=== PATIENT | male | born 1965 | race Caucasian/White ===

== ENCOUNTER 2022-05-16 08:57 | Emergency (ER) | payer OTHER ==
[2022-05-16 09:13] VITALS: O2SAT 97
--- NOTE | 2022-05-16 09:32 | ERPHSYRPT ---
- History of Present Illness Time Seen by Provider: 05/16/22 09:32 Source: patient, family Exam Limitations: no limitations Patient Subjective Stated Complaint: Pt had thyroid removed 4 weeks ago due to a massive cancerous tumor and pt woke this morning with neck pain that goes down his right arm and has numbness in his neck and in his fingers Triage Nursing Assessment: Pt brought to the ER by his , hypertensive, rates neck and arm pain as 7/10, thinks his calcium might be low, pulses normal, skin n/w/d, normal gait, no difficulty with breathing Physician History: This is a morbidly obese 57-year-old white male patient of Dr. John Peraza who presents to the emergency department with right neck paraspinous muscle achiness as well as right posterior shoulder and shoulder achiness. Symptoms started mildly yesterday. This morning the symptoms were worse. He has no chest pain he has no shortness of breath. Proximally 1 month ago patient underwent a total thyroidectomy secondary to thyroid cancer. Patient has been placed on thyroid supplementation as well as calcium supplementation. Patient has radiation therapy scheduled for approximately 1 month from now. Patient has a history of gastroesophageal reflux disease, elevated cholesterol and hypertension. Timing/Duration: abrupt onset, this morning Prearrival Treatment: no prearrival treatment Modifying Factors: Improves With: activity Associated Symptoms: neck pain Allergies/Adverse Reactions: No Known Drug Allergies Allergy (Verified 05/16/22 09:13) Home Medications: Albuterol Sulfate [Albuterol Sulfate Hfa] 2 inh PO UD PRN 05/16/22 [History] Amlodipine Besylate 10 mg PO DAILY 05/16/22 [History] Calcium Carbonate/Vitamin D3 [Calcium 600 with Vit D Chew Tb] 2 each PO DAILY 05/16/22 [History] Carvedilol [Coreg ] 6.25 mg PO DAILY 05/16/22 [History] Cetirizine HCl 10 mg PO DAILY 05/16/22 [History] Famotidine 20 mg [Pepcid 20 MG] 20 mg PO DAILY 05/16/22 [History] Fenofibrate 160 mg PO DAILY 05/16/22 [History] Fluticasone/Umeclidin/Vilanter [Trelegy Ellipta 200-62.5-25] 1 inh PO DAILY 05/16/22 [History] Furosemide 20 mg [Lasix 20 mg] 20 mg PO DAILY 05/16/22 [History] Levothyroxine Sodium [Levo-T] 250 mcg PO DAILY 05/16/22 [History] Losartan Potassium 100 mg PO DAILY 05/16/22 [History] Montelukast Sodium 10 mg [Singulair 10 MG] 10 mg PO DAILY 05/16/22 [History] Multivitamin 1 each PO DAILY 05/16/22 [History] Pravastatin Sodium 40 mg PO DAILY 05/16/22 [History] hydroCHLOROthiazide [Hydrochlorothiazide] 12.5 mg PO DAILY 05/16/22 [History] Hx Tetanus, Diphtheria Vaccination/Date Given: Yes Hx Influenza Vaccination/Date Given: No Hx Pneumococcal Vaccination/Date Given: No Travel Risk - International Travel Have you traveled outside of the country in past 3 weeks: No - Coronavirus Screening Are you exhibiting any of the following symptoms?: No Close contact with a COVID-19 positive Pt in past 14-21 Days: No - Vaccine Status Have you recieved a Covid-19 vaccination: Yes 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 - Review of Systems Constitutional: No Symptoms Eyes: No Symptoms Ears, Nose, & Throat: Other (right post neck pain) Respiratory: No Symptoms Cardiac: No Symptoms Abdominal/Gastrointestinal: No Symptoms Genitourinary Symptoms: No Symptoms Musculoskeletal: Neck Pain (right post neck pain), Other (assoc right shoulder and upper arm ache) Skin: No Symptoms Neurological: No Symptoms Psychological: No Symptoms Endocrine: No Symptoms Hematologic/Lymphatic: No Symptoms Immunological/Allergic: No Symptoms All Other Systems: Reviewed and Negative - Past Medical History Pertinent Past Medical History: Yes Cardiac History: High Cholesterol, Hypertension Endocrine Medical History: Thyroid Cancer GI Medical History: GERD - Past Surgical History Past Surgical History: Yes Other Surgical History: carpal tunnel, thyroid removed - Social History Smoking Status: Never smoker Exposure to second hand smoke: No Drug Use: none Patient Lives Alone: No - Nursing Vital Signs Nursing Vital Signs: Initial Vital Signs Temperature 98.4 F 05/16/22 09:05 Pulse Rate 84 05/16/22 09:05 Blood Pressure 177/98 05/16/22 09:05 O2 Sat by Pulse Oximetry 97 05/16/22 09:05 Pain Scale Pain Intensity 6 - Physical Exam General Appearance: no apparent distress, alert, anxiety, obese Eye Exam: bilateral eye: normal inspection, PERRL, EOMI Ear Exam: bilateral ear: auricle normal Nasal Exam: normal inspection Throat Exam: normal, pharynx normal, moist mucus membranes Neck Exam: supple, full range of motion (Associated right paraspinous muscle and right trapezius muscle achiness), trachea midline Cardiovascular/Respiratory Exam: chest non-tender, no respiratory distress Abdominal Exam: non-tender Neurologic Exam: alert, oriented x 3, cooperative, 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, normal mood/affect, nml cerebellar function, nml station & gait, sensation nml Skin Exam: normal color, warm, dry SpO2 Interpretation: normal SpO2: 97 O2 Delivery: Room Air - Course Nursing assessment & vital signs reviewed: Yes EKG Interpreted by Me: RATE (82), Sinus Rhythm, NORMAL AXIS, NORMAL INTERVALS, NORMAL QRS, NORMAL ST-T, Other (no acute ischemia) Ordered Tests: Active Orders 24 hr Category Date Time Status IV Insertion STAT Care 05/16/22 09:32 Active IV Insertion STAT Care 05/16/22 09:42 Completed NECK WO CONTRAST [CT] Stat Exams 05/16/22 09:37 Completed CBC W DIFF Stat Lab 05/16/22 09:50 Completed CMP Stat Lab 05/16/22 09:50 Completed T4 (Thyroxine) Stat Lab 05/16/22 09:50 Completed TROPONIN Q3H Lab 05/16/22 09:34 Completed TROPONIN Q3H Lab 05/16/22 13:30 Ordered TROPONIN Q3H Lab 05/16/22 16:30 Ordered TROPONIN Q3H Lab 05/16/22 19:30 Ordered TROPONIN Q3H Lab 05/16/22 22:30 Ordered TSH [TSH, 3RD Generation] Stat Lab 05/16/22 09:50 Completed Lab/Rad Data: Laboratory Result Diagrams 05/16/22 09:50 05/16/22 09:50 Laboratory Results 05/16/22 05/16/22 05/16/22 Range/Units 09:50 09:50 09:50 WBC (4.0-10.5) x10^3/uL RBC (4.1-5.6) x10^6/uL Hgb (12.5-18.0) g/dL Hct (42-50) % MCV (78-100) fL MCH (26-32) pg MCHC (32-36) g/dL RDW (11.5-14.0) % Plt Count (150-450) x10^3/uL MPV (7.5-11.0) fL Gran % (36.0-66.0) % Immature Gran % (Auto) (0.00-0.4) % Nucleat RBC Rel Count (0.00-0.1) % Eos # (Auto) (0-0.5) x10^3/uL Immature Gran # (Auto) (0.00-0.03) x10^3u/L Absolute Lymphs (auto) (1.0-4.6) x10^3/uL Absolute Monos (auto) (0.0-1.3) x10^3/uL Absolute Nucleated RBC (0.00-0.01) x10^3u/L Lymphocytes % (24.0-44.0) % Monocytes % (0.0-12.0) % Eosinophils % (0.00-5.0) % Basophils % (0.0-0.4) % Absolute Granulocytes (1.4-6.9) x10^3/uL Basophils # (0-0.4) x10^3/uL Sodium 140 (137-145) mmol/L Potassium 3.8 (3.5-5.1) mmol/L Chloride 102 (98-107) mmol/L Carbon Dioxide 28 (22-30) mmol/L Anion Gap 12.9 (5-15) MEQ/L BUN 16 (9-20) mg/dL Creatinine 1.09 (0.66-1.25) mg/dL Estimated GFR > 60.0 ML/MIN Glucose 131 H (74-106) mg/dL Calcium 9.5 (8.4-10.2) mg/dL Total Bilirubin 0.50 (0.2-1.3) mg/dL AST 30 (17-59) U/L ALT 31 (0-50) U/L Alkaline Phosphatase 81 (38-126) U/L Troponin I (0.000-0.034) ng/mL Serum Total Protein 8.3 H (6.3-8.2) g/dL Albumin 4.6 (3.5-5.0) g/dL Thyroxine (T4) 12.3 H (5.53-10.96) ug/dL TSH 3rd Generation 3.890 (0.47-4.68) mIU/L 05/16/22 05/16/22 Range/Units 09:50 09:34 WBC 6.1 (4.0-10.5) x10^3/uL RBC 4.24 (4.1-5.6) x10^6/uL Hgb 12.0 L (12.5-18.0) g/dL Hct 37.5 L (42-50) % MCV 88.4 (78-100) fL MCH 28.3 (26-32) pg MCHC 32.0 (32-36) g/dL RDW 13.3 (11.5-14.0) % Plt Count 248 (150-450) x10^3/uL MPV 10.8 (7.5-11.0) fL Gran % 72.1 H (36.0-66.0) % Immature Gran % (Auto) 0.8 H (0.00-0.4) % Nucleat RBC Rel Count 0.0 (0.00-0.1) % Eos # (Auto) 0.11 (0-0.5) x10^3/uL Immature Gran # (Auto) 0.05 H (0.00-0.03) x10^3u/L Absolute Lymphs (auto) 0.93 L (1.0-4.6) x10^3/uL Absolute Monos (auto) 0.57 (0.0-1.3) x10^3/uL Absolute Nucleated RBC 0.00 (0.00-0.01) x10^3u/L Lymphocytes % 15.2 L (24.0-44.0) % Monocytes % 9.3 (0.0-12.0) % Eosinophils % 1.8 (0.00-5.0) % Basophils % 0.8 (0.0-0.4) % Absolute Granulocytes 4.41 (1.4-6.9) x10^3/uL Basophils # 0.05 (0-0.4) x10^3/uL Sodium (137-145) mmol/L Potassium (3.5-5.1) mmol/L Chloride (98-107) mmol/L Carbon Dioxide (22-30) mmol/L Anion Gap (5-15) MEQ/L BUN (9-20) mg/dL Creatinine (0.66-1.25) mg/dL Estimated GFR ML/MIN Glucose (74-106) mg/dL Calcium (8.4-10.2) mg/dL Total Bilirubin (0.2-1.3) mg/dL AST (17-59) U/L ALT (0-50) U/L Alkaline Phosphatase (38-126) U/L Troponin I < 0.012 (0.000-0.034) ng/mL Serum Total Protein (6.3-8.2) g/dL Albumin (3.5-5.0) g/dL Thyroxine (T4) (5.53-10.96) ug/dL TSH 3rd Generation (0.47-4.68) mIU/L - Progress Progress: improved, pain not gone completely Progress Note: 05/16/22 11:27 ct neck/soft tissues: postsurgical site without complications. incidental findings of mild degenerative changes C5-C7 Counseled pt/family regarding: lab results, diagnosis, need for follow-up, rad results - Departure Departure Disposition: Home Clinical Impression: Musculoskeletal pain Condition: Stable Critical Care Time: No Referrals: NURA DILLON MD [Primary Care Provider] - Follow up/PCP as directed Additional Instructions: continue your medications as prescribed. follow up with your prescribing p jana today for further evaluation and management Prescriptions: Orphenadrine Citrate 100 mg [Norflex 100 MG Tablet] 100 mg PO BID #10 tab
[2022-05-16 10:13] LABS: Absolute Neutrophil Ct (ANC) 4.41 x10^3/uL (1.4-6.9); Basophil (Absolute #) 0.05 x10^3/uL (0-0.4); Eosinophil % 1.8 % (0.00-5.0); Eosinophil (Absolute #) 0.11 x10^3/uL (0-0.5); Hematocrit 37.5 % (42-50); Lymphocyte (Absolute #) 0.93 x10^3/uL (1.0-4.6); Lymphocytes % 15.2 % (24.0-44.0); Mean Cell Volume 88.4 fL (78-100); Mean Corpuscular Hemoglobin 28.3 pg (26-32); Mean Platelet Volume 10.8 fL (7.5-11.0); Monocyte (Absolute #) 0.57 x10^3/uL (0.0-1.3); Monocytes % 9.3 % (0.0-12.0); Neutrophil % 72.1 % (36.0-66.0); Platelet Count 248 x10^3/uL (150-450); Red Blood Count 4.24 x10^6/uL (4.1-5.6); Red Cell Distribution Width 13.3 % (11.5-14.0); White Blood Count 6.1 x10^3/uL (4.0-10.5)
[2022-05-16 10:19] LABS: ALBUMIN 4.6 g/dL (3.5-5.0); ALKALINE PHOSPHATASE 81 U/L (38-126); ANION GAP 12.9 MEQ/L (5-15); BLOOD UREA NITROGEN 16 mg/dL (9-20); CHLORIDE 102 mmol/L (98-107); Calcium 9.5 mg/dL (8.4-10.2); Carbon Dioxide 28 mmol/L (22-30); Creatinine 1 1.09 mg/dL (0.66-1.25); EST GLOMERULAR FILTRATION RATE > 60.0 ML/MIN; Glucose 131 mg/dL (74-106); Potassium 3.8 mmol/L (3.5-5.1); SGOT/AST 30 U/L (17-59); SGPT/ALT 31 U/L (0-50); SODIUM 140 mmol/L (137-145); Total Protein 8.3 g/dL (6.3-8.2)
--- NOTE | 2022-05-16 11:20 | XRAY ---
Indication: Right neck/shoulder pain. Body aches. Status post total thyroidectomy. Multiple contiguous axial images obtained through the neck without contrast. Sagittal and coronal reformatted images obtained. Comparison: None Parotid glands demonstrate diffuse fatty replacement bilaterally. Submandibular glands are bilaterally symmetric. Total thyroidectomy with postoperative changes. No focal solid/cystic soft tissue mass or abnormal fluid collection on this noncontrast exam. A few subcentimeter cervical lymph nodes bilaterally. No pathologic cervical/supraclavicular lymphadenopathy. Major arteries and veins are normal in course and caliber. Supra and infraglottic airway widely patent. Normal epiglottis. Osseous structures intact with incidental mild C5-C7 degenerative changes. No acute fracture or suspicious bony lesions. Incidental bilateral exophthalmos. Base of brain and lung apices are unremarkable. Impression: 1. Status post total thyroidectomy without complications or pathologic lymphadenopathy. 2. Incidental diffuse fatty replaced parotid glands, bilateral exophthalmos, and mild C5-C7 degenerative changes.
[2022-05-16] MEDS ORDERED: Norflex 60 MG/2 ML IV ONE (11:31)
[2022-05-16] MEDS ORDERED: Norflex 60 MG/2 ML ONE (11:33)
[2022-05-16 11:48] VITALS: BP 150/86; PULSE 81
== END 2022-05-16 11:49 | disposition home or self-care (01) ==
LOC: ED 08:57
DX: M54.2 Cervicalgia (principal); M25.511 Pain in right shoulder; E78.5 Hyperlipidemia, unspecified; I10 Essential (primary) hypertension; E89.0 Postprocedural hypothyroidism; Z79.899 Other long term (current) drug therapy
CPT/HCPCS: 36000; 36415; 70490; 80053; 83970; 84436; 84443; 84484; 85025; 93005; 96374; 99284; J2360

== ENCOUNTER 2022-05-21 03:49 | Emergency (ER) | payer OTHER ==
--- NOTE | 2022-05-21 06:43 | ERPHSYRPT ---
- History of Present Illness Time Seen by Provider: 05/21/22 04:30 Source: patient Exam Limitations: no limitations Patient Subjective Stated Complaint: pt states he has been having pain in his rt arm for last week. states he was seen in the er earlier this week and pain has gotten worse since then. Triage Nursing Assessment: pt alert and oriented, answers questions approp. pt ambulatory with steady gait noted. respirations nonlabored. skin warm and dry. pt states decreased rom in rt shoulder. pt moves elbow and hand without diff. Physician History: Patient is a 57-year-old male presents to emergency department for evaluation of arm pain and numbness to his fingers. Patient was in our ED last week for the same. Patient had a cardiac work-up that was essentially nonremarkable. Patient also had a CT of the cervical spine that showed some degenerative changes. Patient is here because his symptoms have gotten somewhat worse. Patient has pain along his lower cervical and upper thoracic spine. He has numbness at the median nerve dermatome as well as the radial nerve dermatome. Sensation intact along the ulnar nerve dermatome. No slurred speech. No visual disturbances. No other focal neurologic deficits. No associated chest pain or shortness of breath. No nausea vomiting or diaphoresis symptoms are mild to moderate in intensity. No specific worsening improving factors. Patient voices no other complaints or concerns at this time. Portions of this note were created with voice recognition technology. There may be grammatical, spelling, punctuation or sound alike errors Timing/Duration: week(s) (1 week) Severity: moderate Modifying Factors: Improves With: nothing Associated Symptoms: denies symptoms Allergies/Adverse Reactions: No Known Drug Allergies Allergy (Verified 05/21/22 04:18) Home Medications: Albuterol Sulfate [Albuterol Sulfate Hfa] 2 inh PO UD PRN 05/16/22 [History] Amlodipine Besylate 10 mg PO DAILY 05/16/22 [History] Calcium Carbonate/Vitamin D3 [Calcium 600 with Vit D Chew Tb] 2 each PO DAILY 05/16/22 [History] Carvedilol [Coreg ] 6.25 mg PO DAILY 05/16/22 [History] Cetirizine HCl 10 mg PO DAILY 05/16/22 [History] Famotidine 20 mg [Pepcid 20 MG] 20 mg PO DAILY 05/16/22 [History] Fenofibrate 160 mg PO DAILY 05/16/22 [History] Fluticasone/Umeclidin/Vilanter [Trelegy Ellipta 200-62.5-25] 1 inh PO DAILY 05/16/22 [History] Furosemide 20 mg [Lasix 20 mg] 20 mg PO DAILY 05/16/22 [History] Levothyroxine Sodium [Levo-T] 250 mcg PO DAILY 05/16/22 [History] Losartan Potassium 100 mg PO DAILY 05/16/22 [History] Montelukast Sodium 10 mg [Singulair 10 MG] 10 mg PO DAILY 05/16/22 [History] Multivitamin 1 each PO DAILY 05/16/22 [History] Pravastatin Sodium 40 mg PO DAILY 05/16/22 [History] hydroCHLOROthiazide [Hydrochlorothiazide] 12.5 mg PO DAILY 05/16/22 [History] Hx Tetanus, Diphtheria Vaccination/Date Given: Yes Hx Influenza Vaccination/Date Given: No Hx Pneumococcal Vaccination/Date Given: No Immunizations Up to Date: Yes Travel Risk - International Travel Have you traveled outside of the country in past 3 weeks: No - Coronavirus Screening Are you exhibiting any of the following symptoms?: No Close contact with a COVID-19 positive Pt in past 14-21 Days: No - Vaccine Status Have you recieved a Covid-19 vaccination: Yes 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: [employer] - Review of Systems Constitutional: No Symptoms, No Fever, No Chills Eyes: No Symptoms Ears, Nose, & Throat: No Symptoms Respiratory: No Symptoms, No Cough, No Dyspnea Cardiac: No Symptoms, No Chest Pain, No Edema, No Syncope Abdominal/Gastrointestinal: No Symptoms, No Abdominal Pain, No Nausea, No Vomiting, No Diarrhea Genitourinary Symptoms: No Symptoms, No Dysuria Musculoskeletal: No Symptoms, No Back Pain, No Neck Pain Skin: No Symptoms, No Rash Neurological: No Symptoms, No Dizziness, No Focal Weakness, No Sensory Changes Psychological: No Symptoms Endocrine: No Symptoms Hematologic/Lymphatic: No Symptoms Immunological/Allergic: No Symptoms All Other Systems: Reviewed and Negative - Past Medical History Pertinent Past Medical History: Yes Cardiac History: High Cholesterol, Hypertension Endocrine Medical History: Thyroid Cancer GI Medical History: GERD - Past Surgical History Past Surgical History: Yes Other Surgical History: carpal tunnel, thyroid removed - Social History Smoking Status: Never smoker Exposure to second hand smoke: No Drug Use: none Patient Lives Alone: No - Nursing Vital Signs Nursing Vital Signs: Initial Vital Signs Temperature 97.4 F 05/21/22 04:10 Pulse Rate 86 05/21/22 04:10 Respiratory Rate 20 05/21/22 04:10 Blood Pressure 147/91 05/21/22 04:10 O2 Sat by Pulse Oximetry 98 05/21/22 04:10 Pain Scale Pain Intensity 5 - Physical Exam General Appearance: no apparent distress, alert Eye Exam: PERRL/EOMI, eyes nml inspection Ears, Nose, Throat Exam: normal ENT inspection, TMs normal, pharynx normal, moist mucous membranes Neck Exam: normal inspection, non-tender, supple, full range of motion Respiratory Exam: normal breath sounds, lungs clear, airway intact, No respiratory distress Cardiovascular Exam: regular rate/rhythm, normal heart sounds, normal peripheral pulses Gastrointestinal/Abdomen Exam: soft, normal bowel sounds, No tenderness, No mass Back Exam: normal inspection, normal range of motion, No CVA tenderness, No vertebral tenderness Extremity Exam: normal inspection, normal range of motion, pelvis stable Neurologic Exam: alert, oriented x 3, cooperative, normal mood/affect, nml cerebellar function, nml station & gait, sensation nml, No motor deficits Skin Exam: normal color, warm, dry, No rash Lymphatic Exam: No adenopathy SpO2 Interpretation: normal SpO2: 97 O2 Delivery: Room Air - Course Nursing assessment & vital signs reviewed: Yes - Progress Progress: improved Progress Note: Telemetry neuro was consulted. However we were awaiting several hours for them to evaluate patient. At approximately 6:40 AM Case discussed with patient. Patient decided he no longer wanted to wait for the telemetry neuro consultation. Patient symptomology appears to be peripheral nerve in nature. Symptoms have been ongoing for approximately 1 week. Patient referred to orthopedic clinic for further evaluation/MRI. Portions of this note were created with voice recognition technology. There may be grammatical, spelling, punctuation or sound alike errors 05/21/22 06:47 Counseled pt/family regarding: diagnosis, need for follow-up, rad results - Departure Departure Disposition: Home Clinical Impression: Cervical radiculopathy Condition: Stable Critical Care Time: No Referrals: NURA DILLON MD [Primary Care Provider] - Follow up/PCP as directed Additional Instructions: Discharge/Care Plan JORDYN HICKS was seen on 05/21/22 in the Emergency Room. The patient was counseled regarding Diagnosis,Lab results, Imaging studies, need for follow up and when to return to the Emergency Room. Prescriptions given: Discharge Note I have spoken with the patient and/or caregivers. I have explained the patient's condition, diagnosis and treatment plan based on the information available to me at this time. I have answered the patient's and/or caregiver's questions and addressed any concerns. The patient and/or caregivers have as good understanding of the patient's diagnosis, condition and treatment plan as can be expected at this point. The vital signs have been stable. The patient's condition is stable and appropriate for discharge from the emergency department. The patient will pursue further outpatient evaluation with the primary care physician or other designated or consulting physician as outlined in the discharge instructions. The patient and/or caregivers are agreeable to this plan of care and follow-up instructions have been explained in detail. The patient and/or caregivers have received these instruction. The patient/and or caregivers are aware that any significant change in condition or worsening of symptoms should prompt an immediate return to this or the closest emergency department or call 911.
[2022-05-21 07:07] VITALS: BP 168/71; PULSE 74; O2SAT 98
== END 2022-05-21 07:04 | disposition home or self-care (01) ==
LOC: ED 03:49
DX: M54.12 Radiculopathy, cervical region (principal); M79.601 Pain in right arm; R20.2 Paresthesia of skin; M54.2 Cervicalgia; M54.6 Pain in thoracic spine; E78.5 Hyperlipidemia, unspecified; I10 Essential (primary) hypertension; Z79.899 Other long term (current) drug therapy
CPT/HCPCS: 99283

== ENCOUNTER 2022-05-22 12:48 | Emergency (ER) | payer OTHER ==
[2022-05-22 13:17] VITALS: O2SAT 96
[2022-05-22 14:07] VITALS: BP 130/72; PULSE 80
--- NOTE | 2022-05-22 14:52 | ERPHSYRPT ---
- History of Present Illness Time Seen by Provider: 05/22/22 13:20 Source: patient Exam Limitations: no limitations Patient Subjective Stated Complaint: C/O pain in neck that radiates into shoulder and down his arm. Patient came into the ED today for the sole purpose of an MRI. Patient instructed to come into the ED by Dr. Gilliam for the MRI today. Triage Nursing Assessment: Patient ambulated back to ED. He is alert and oriented. Voice slightly low and hoarse. No SOB. Physician History: Patient is a 57-year-old male presents to our ED for progressive neck pain that radiates into right shoulder down his right arm. Patient is now experiencing paresthesias with some hand weakness. Symptoms started approximately 10 days ago. Symptoms have been progressive. Patient has a recent history of thyroid cancer for which he received a thyroidectomy. Patient presented to our ED 1 week ago with the same complaints. He had a cardiac work-up and also a CAT scan of the cervical spine. Cardiac work-up was essentially nonremarkable. CT spine showed some degenerative changes. In the course of the following week symptoms progressed. Patient came into our ED yesterday. We were not able to accommodate an MRI yesterday due to scheduling issues. However we arrange for patient to have an MRI today. Patient arrived to our ED specifically for an MRI however staff informed us that patient could not have the MRI as his body weight exceeded the capacity of the MRI machine. Patient states the pain has gotten progressively worse. In light of patient's recent thyroid cancer history and radicular symptomology we ordered an urgent MRI. Timing/Duration: week(s) Severity: moderate Modifying Factors: Improves With: medication (Movement and palpation to right paraspinal cervical and upper thoracic reproduce symptoms.) Associated Symptoms: denies symptoms, weakness (Upper extremity weakness) Allergies/Adverse Reactions: No Known Drug Allergies Allergy (Verified 05/22/22 13:09) Home Medications: Albuterol Sulfate [Albuterol Sulfate Hfa] 2 inh PO UD PRN 05/16/22 [History] Amlodipine Besylate 10 mg PO DAILY 05/16/22 [History] Calcium Carbonate/Vitamin D3 [Calcium 600 with Vit D Chew Tb] 2 each PO DAILY 05/16/22 [History] Carvedilol [Coreg ] 6.25 mg PO DAILY 05/16/22 [History] Cetirizine HCl 10 mg PO DAILY 05/16/22 [History] Famotidine 20 mg [Pepcid 20 MG] 20 mg PO DAILY 05/16/22 [History] Fenofibrate 160 mg PO DAILY 05/16/22 [History] Fluticasone/Umeclidin/Vilanter [Trelegy Ellipta 200-62.5-25] 1 inh PO DAILY 05/16/22 [History] Furosemide 20 mg [Lasix 20 mg] 20 mg PO DAILY 05/16/22 [History] Levothyroxine Sodium [Levo-T] 250 mcg PO DAILY 05/16/22 [History] Losartan Potassium 100 mg PO DAILY 05/16/22 [History] Montelukast Sodium 10 mg [Singulair 10 MG] 10 mg PO DAILY 05/16/22 [History] Multivitamin 1 each PO DAILY 05/16/22 [History] Pravastatin Sodium 40 mg PO DAILY 05/16/22 [History] hydroCHLOROthiazide [Hydrochlorothiazide] 12.5 mg PO DAILY 05/16/22 [History] Hx Tetanus, Diphtheria Vaccination/Date Given: Yes Hx Influenza Vaccination/Date Given: No Hx Pneumococcal Vaccination/Date Given: No Immunizations Up to Date: Yes Travel Risk - International Travel Have you traveled outside of the country in past 3 weeks: No - Coronavirus Screening Are you exhibiting any of the following symptoms?: No Close contact with a COVID-19 positive Pt in past 14-21 Days: No - Vaccine Status Have you recieved a Covid-19 vaccination: Yes 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[employer] - Review of Systems Constitutional: No Symptoms, No Fever, No Chills Eyes: No Symptoms Ears, Nose, & Throat: No Symptoms Respiratory: No Symptoms, No Cough, No Dyspnea Cardiac: No Symptoms, No Chest Pain, No Edema, No Syncope Abdominal/Gastrointestinal: No Symptoms, No Abdominal Pain, No Nausea, No Vomiting, No Diarrhea Genitourinary Symptoms: No Symptoms, No Dysuria Musculoskeletal: No Symptoms, No Back Pain, No Neck Pain Skin: No Symptoms, No Rash Neurological: No Symptoms, No Dizziness, No Focal Weakness, No Sensory Changes Psychological: No Symptoms Endocrine: No Symptoms Hematologic/Lymphatic: No Symptoms Immunological/Allergic: No Symptoms All Other Systems: Reviewed and Negative - Past Medical History Pertinent Past Medical History: Yes Cardiac History: High Cholesterol, Hypertension Endocrine Medical History: Thyroid Cancer GI Medical History: GERD - Past Surgical History Past Surgical History: Yes Other Surgical History: carpal tunnel, thyroid removed - Social History Smoking Status: Never smoker Exposure to second hand smoke: No Drug Use: none Patient Lives Alone: No - Nursing Vital Signs Nursing Vital Signs: Initial Vital Signs Temperature 98.1 F 05/22/22 13:12 Pulse Rate 93 H 05/22/22 13:12 Respiratory Rate 20 05/22/22 13:12 Blood Pressure 166/101 05/22/22 13:12 O2 Sat by Pulse Oximetry 96 05/22/22 13:12 Pain Scale Pain Intensity 10 - Physical Exam General Appearance: no apparent distress, alert Eye Exam: PERRL/EOMI, eyes nml inspection Ears, Nose, Throat Exam: normal ENT inspection, TMs normal, pharynx normal, moist mucous membranes Neck Exam: normal inspection, non-tender, supple, full range of motion Respiratory Exam: normal breath sounds, lungs clear, airway intact, No respiratory distress Cardiovascular Exam: regular rate/rhythm, normal heart sounds, normal peripheral pulses Gastrointestinal/Abdomen Exam: soft, normal bowel sounds, No tenderness, No mass Back Exam: normal inspection, normal range of motion, No CVA tenderness, No vertebral tenderness Extremity Exam: normal inspection, normal range of motion, pelvis stable Neurologic Exam: alert, oriented x 3, cooperative, normal mood/affect, nml cerebellar function, nml station & gait, sensation nml, No motor deficits Skin Exam: normal color, warm, dry, No rash Lymphatic Exam: No adenopathy SpO2 Interpretation: normal SpO2: 96 O2 Delivery: Room Air - Course Nursing assessment & vital signs reviewed: Yes Ordered Tests: Active Orders 24 hr Category Date Time Status IV Insertion STAT Care 05/22/22 13:31 Active - Progress Progress: unchanged Progress Note: We ordered a MRI with and without contrast of head and cervical spine. Unfortunately could not be done today as patient's body weight exceeded MRI machines capacity. We contacted our administrators and they agreed to eliminate charges for this visit. This visit was for the sole purpose of obtaining the MRI. We are currently contacting various MRI facilities in the area to arrange the imaging study. Patient currently has an order for [place] at the [facility] in [place]. Patient will pick his pain medication up today. We will discharge patient home. In the meantime we will continue to work on obtaining an urgent MRI. We will contact with an update on her progress. In the meantime patient has a follow-up appointment already scheduled to see his orthopedist. His appointment is scheduled for tomorrow. Portions of this note were created with voice recognition technology. There may be grammatical, spelling, punctuation or sound alike errors 05/22/22 14:56 Counseled pt/family regarding: diagnosis, need for follow-up - Departure Departure Disposition: Home Clinical Impression: Cervical radiculopathy, Shoulder pain, Hand weakness, Hand paresthesia, History of thyroid cancer Condition: Stable Critical Care Time: No Referrals: NURA DILLON MD [Primary Care Provider] - Follow up/PCP as directed Additional Instructions: Discharge/Care Plan JORDYN HICKS was seen on 05/22/22 in the Emergency Room. The patient was counseled regarding Diagnosis,Lab results, Imaging studies, need for follow up and when to return to the Emergency Room. Prescriptions given: Discharge Note I have spoken with the patient and/or caregivers. I have explained the patient's condition, diagnosis and treatment plan based on the information available to me at this time. I have answered the patient's and/or caregiver's questions and addressed any concerns. The patient and/or caregivers have as good understanding of the patient's diagnosis, condition and treatment plan as can be expected at this point. The vital signs have been stable. The patient's condition is stable and appropriate for discharge from the emergency department. The patient will pursue further outpatient evaluation with the primary care physician or other designated or consulting physician as outlined in the discharge instructions. The patient and/or caregivers are agreeable to this plan of care and follow-up instructions have been explained in detail. The patient and/or caregivers have received these instruction. The patient/and or caregivers are aware that any significant change in condition or worsening of symptoms should prompt an immediate return to this or the closest emergency department or call 911.
== END 2022-05-22 15:47 | disposition home or self-care (01) ==
LOC: ED 12:48
DX: M54.12 Radiculopathy, cervical region (principal); M25.511 Pain in right shoulder; M62.81 Muscle weakness (generalized); R20.2 Paresthesia of skin; Z85.850 Personal history of malignant neoplasm of thyroid; E78.5 Hyperlipidemia, unspecified; I10 Essential (primary) hypertension; Z79.899 Other long term (current) drug therapy
CPT/HCPCS: 36000; 99282

== ENCOUNTER 2022-10-13 16:50 | Emergency (ER) | payer OTHER ==
[2022-10-13] MEDS ORDERED: MORPHINE SULFATE 2 MG INJ IV ONE (17:13)
[2022-10-13] MEDS ORDERED: Sodium Chloride 0.9% 1000 ML 1,000 ML IV SCH (17:15)
[2022-10-13 17:27] LABS: Absolute Neutrophil Ct (ANC) 5.81 x10^3/uL (1.4-6.9); Basophil (Absolute #) 0.03 x10^3/uL (0-0.4); Eosinophil % 1.6 % (0.00-5.0); Eosinophil (Absolute #) 0.12 x10^3/uL (0-0.5); Hematocrit 41.6 % (42-50); Hemoglobin 13.2 g/dL (12.5-18.0); Lymphocyte (Absolute #) 0.93 x10^3/uL (1.0-4.6); Lymphocytes % 12.3 % (24.0-44.0); Mean Cell Volume 89.7 fL (78-100); Mean Corpuscular Hemoglobin 28.4 pg (26-32); Mean Corpuscular Hgb Concent. 31.7 g/dL (32-36); Mean Platelet Volume 9.7 fL (7.5-11.0); Monocyte (Absolute #) 0.57 x10^3/uL (0.0-1.3); Monocytes % 7.5 % (0.0-12.0); Neutrophil % 76.7 % (36.0-66.0); Platelet Count 238 x10^3/uL (150-450); Red Blood Count 4.64 x10^6/uL (4.1-5.6); Red Cell Distribution Width 13.4 % (11.5-14.0); White Blood Count 7.6 x10^3/uL (4.0-10.5)
[2022-10-13] MEDS ORDERED: Sodium Chloride 0.9% 1000 ML 1,000 ML ONE (17:39)
[2022-10-13] MEDS ORDERED: MORPHINE SULFATE 2 MG INJ ONE ×2 (17:39→18:01)
[2022-10-13 17:47] LABS: ALBUMIN 4.8 g/dL (3.5-5.0); ALKALINE PHOSPHATASE 94 U/L (38-126); ANION GAP 11.5 MEQ/L (5-15); BLOOD UREA NITROGEN 16 mg/dL (9-20); CHLORIDE 102 mmol/L (98-107); Calcium 9.5 mg/dL (8.4-10.2); Carbon Dioxide 29 mmol/L (22-30); EST GLOMERULAR FILTRATION RATE > 60.0 ML/MIN; Glucose 124 mg/dL (74-106); Potassium 3.5 mmol/L (3.5-5.1); SGOT/AST 61 U/L (17-59); SGPT/ALT 48 U/L (0-50); SODIUM 139 mmol/L (137-145); Total Protein 8.8 g/dL (6.3-8.2)
[2022-10-13 19:27] LABS: Amphetamine,Urine NEGATIVE (NEGATIVE); Barbiturate,Urine NEGATIVE (NEGATIVE); Benzodiazepine,Urine NEGATIVE (NEGATIVE); Cocaine,Urine NEGATIVE (NEGATIVE); Methadone,Urine NEGATIVE (NEGATIVE); Opiate,Urine POSITIVE (NEGATIVE); PCP,Urine NEGATIVE (NEGATIVE); THC,Urine NEGATIVE (NEGATIVE)
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
[2022-10-13 20:11] VITALS: BP 162/70; PULSE 99
[2022-10-13 20:13] VITALS: O2SAT 96
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
== END 2022-10-13 20:27 | disposition home or self-care (01) ==
LOC: ED 16:50
DX: S01.81XA Laceration without foreign body of other part of head, initial encounter (principal); V58.5XXA Driver of pick-up truck or van injured in noncollision transport accident in traffic accident, initial encounter; R10.9 Unspecified abdominal pain; E78.5 Hyperlipidemia, unspecified; I10 Essential (primary) hypertension; Z79.899 Other long term (current) drug therapy
CPT/HCPCS: 36000; 36415; 70450; 71260; 74177; 80053; 80307; 84484; 85025; 93005; 96374; 99285; J2270

== ENCOUNTER 2024-08-27 21:56 | Emergency (ER) | payer OTHER ==
--- NOTE | 2024-08-27 22:13 | ERPHSYRPT ---
- History of Present Illness Time Seen by Provider: 08/27/24 22:10 Historian: patient, family Exam Limitations: no limitations Physician History: This is a morbidly obese 59-year-old white male patient of Dr. Dillon who presents by private vehicle escorted by his spouse to be evaluated for chest pain that has been present intermittently for 2 months. Patient recalls the initial pain event began when he got out of his truck and suddenly twisted and the pain has been present intermittently ever since. He describes the pain as a tightness across his anterior chest in a bandlike fashion and wraps around to his mid back. It hurts worse with movement and deep breath. Patient has a chronic cough but has had no hemoptysis. 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 However, he has no leg or calf pain. He has not had any fevers or chills. He does not want any viral studies performed. The patient has a history of hypertension, hyperlipidemia, asthma/COPD and hypothyroidism. He is not diabetic. He is not a smoker of tobacco cigarettes. He has never been diagnosed with coronary artery disease. Quality: tightness Location: other (Bandlike fashion anterior chest transversely around to the mid scapular region) Chest Pain Radiation: back (Mid scapular region) Severity of Pain-Max: moderate Severity of Pain-Current: mild Modifying Factors: Improves With: movement (Worsens), change in position (Worsens) Associated Symptoms: denies symptoms Prior Chest Pain/Cardiac Workup: no prior chest pain, no prior cardiac workup Nitro Today/Relief: no nitro taken today Aspirin Treatment Today: 81 mg x 4, provided by ED Allergies/Adverse Reactions: No Known Drug Allergies Allergy (Verified 08/27/24 22:26) Home Medications: Albuterol Sulfate [Albuterol Sulfate Hfa] 2 inh PO UD PRN 05/16/22 [History] Amlodipine Besylate 10 mg PO DAILY 05/16/22 [History] Carvedilol [Coreg ] 6.25 mg PO DAILY 05/16/22 [History] Cetirizine HCl 10 mg PO DAILY 05/16/22 [History] Famotidine 20 mg [Pepcid 20 MG] 20 mg PO DAILY 05/16/22 [History] Fenofibrate 160 mg PO DAILY 05/16/22 [History] Fluticasone/Umeclidin/Vilanter [Trelegy Ellipta 200-62.5-25] 1 inh PO DAILY 05/16/22 [History] Furosemide 20 mg [Lasix 20 mg] 20 mg PO DAILY 05/16/22 [History] Levothyroxine Sodium [Levo-T] 200 mcg PO DAILY 05/16/22 [History] Montelukast Sodium 10 mg [Singulair 10 MG] 10 mg PO DAILY 05/16/22 [History] Multivitamin 1 each PO DAILY 05/16/22 [History] Pravastatin Sodium 40 mg PO DAILY 05/16/22 [History] hydroCHLOROthiazide [Hydrochlorothiazide] 12.5 mg PO DAILY 05/16/22 [History] Fluticasone/Umeclidin/Vilanter [Trelegy Ellipta 100-62.5-25] 1 each IH DAILY 10/13/22 [History] Losartan Potassium 100 mg PO DAILY 10/13/22 [History] Hx Tetanus, Diphtheria Vaccination/Date Given: Yes Hx Influenza Vaccination/Date Given: Yes Hx Pneumococcal Vaccination/Date Given: No Travel Risk - International Travel Have you traveled outside of the country in past 3 weeks: No - Emerging Infectious Disease Are you exhibiting symptoms associated with any current EIDs: No - Review of Systems Constitutional: No Symptoms Eyes: No Symptoms Ears, Nose, & Throat: No Symptoms Respiratory: No Symptoms Cardiac: Chest Pain Abdominal/Gastrointestinal: No Symptoms Genitourinary Symptoms: No Symptoms Musculoskeletal: No Symptoms Skin: No Symptoms Neurological: No Symptoms Psychological: No Symptoms Endocrine: No Symptoms Hematologic/Lymphatic: No Symptoms Immunological/Allergic: No Symptoms All Other Systems: Reviewed and Negative - Past Medical History Pertinent Past Medical History: Yes Cardiac History: High Cholesterol, Hypertension Endocrine Medical History: Thyroid Cancer GI Medical History: GERD - Past Surgical History Past Surgical History: Yes Other Surgical History: carpal tunnel, thyroid removed - Social History Smoking Status: Never smoker Exposure to second hand smoke: No Drug Use: none Patient Lives Alone: No - Nursing Vital Signs Nursing Vital Signs: Initial Vital Signs Pulse Rate 104 H 08/27/24 21:57 Respiratory Rate 20 08/27/24 21:57 Blood Pressure 187/126 08/27/24 21:57 O2 Sat by Pulse Oximetry 99 08/27/24 21:57 Pain Scale Pain Intensity 5 - Physical Exam General Appearance: no apparent distress, alert, obese Eye Exam: PERRL/EOMI, eyes nml inspection Ears, Nose, Throat Exam: normal ENT inspection, moist mucous membranes Neck Exam: normal inspection, non-tender, supple, full range of motion Respiratory Exam: normal breath sounds, chest tenderness, respiratory distress, airway intact, No lungs clear Cardiovascular Exam: tachycardia Gastrointestinal/Abdomen Exam: soft, normal bowel sounds, No tenderness Rectal Exam: not done Back Exam: normal inspection, normal range of motion, No CVA tenderness, No vertebral tenderness Extremity Exam: normal inspection, normal range of motion, pelvis stable Neurologic Exam: alert, oriented x 3, cooperative, 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 QTc is 464. No significant change when compared to twelve-lead EKG dated 10/13/2022) Ordered Tests: Active Orders 24 hr Category Date Time Status Wedding Planner STAT Care 08/27/24 22:40 Active EKG-ER Only STAT Care 08/27/24 22:39 Active IV Insertion STAT Care 08/27/24 22:39 Active Pulse Oximetry (ED) STAT Care 08/27/24 22:39 Active CHEST 1 VIEW (PORTABLE) Stat Exams 08/27/24 23:34 Taken CBC W DIFF Stat Lab 08/27/24 22:39 Completed CMP Stat Lab 08/27/24 22:39 Completed D-DIMER QUANTITATIVE Stat Lab 08/27/24 22:39 Completed NT PRO BNPII Stat Lab 08/27/24 22:39 Completed PROTIME WITH INR Stat Lab 08/27/24 22:39 Completed TROPONIN Q4H Lab 08/27/24 22:45 Completed TROPONIN Q4H Lab 08/28/24 01:45 Ordered TROPONIN Q4H Lab 08/28/24 05:45 Ordered Medication Summary Discontinued Medications Generic Name Dose Route Start Last Admin Trade Name Libby PRN Reason Stop Dose Admin Aspirin 324 mg 08/27/24 22:39 08/27/24 22:56 Aspirin 81 Mg Tab.Chew PO 08/27/24 22:40 324 mg STAT ONE Administration Aspirin Confirm 08/27/24 22:55 Aspirin 81 Mg Tab.Chew Administered 08/27/24 22:56 Dose 324 mg .ROUTE .STK-MED ONE Lab/Rad Data: Laboratory Result Diagrams 08/27/24 22:39 08/27/24 22:39 Laboratory Results 08/27/24 08/27/24 08/27/24 Range/Units 22:45 22:39 22:39 WBC (4.23-9.07) x10^3/uL RBC (4.63-6.08) x10^6/uL Hgb (13.7-17.5) g/dL Hct (40.1-51.0) % MCV (79.0-92.2) fL MCH (25.7-32.2) pg MCHC (32.3-36.5) g/dL RDW (11.6-14.4) % Plt Count (163-337) x10^3/uL MPV (9.4-12.4) fL Gran % (34.0-67.9) % Immature Gran % (Auto) (0.001-0.429) % Nucleat RBC Rel Count (0.00-0.2) % Eos # (Auto) (0.04-0.54) x10^3/uL Immature Gran # (Auto) (0.001-0.031) x10^3u/L Absolute Lymphs (auto) (1.32-3.57) x10^3/uL Absolute Monos (auto) (0.30-0.82) x10^3/uL Absolute Nucleated RBC (0.00-0.012) x10^3u/L Lymphocytes % (21.8-53.1) % Monocytes % (5.3-12.2) % Eosinophils % (0.8-7.0) % Basophils % (0.2-1.2) % Absolute Granulocytes (1.78-5.38) x10^3/uL Basophils # (0.01-0.08) x10^3/uL PT 9.9 (9.4-12.5) SECONDS INR 0.90 (0.8-3.0) D-Dimer 0.46 (0.0-0.50) mg/L Sodium 141 (135-145) mmol/L Potassium 3.6 (3.5-5.1) mmol/L Chloride 103 (98-107) mmol/L Carbon Dioxide 26 (22-30) mmol/L Anion Gap 15.5 H (5-15) MEQ/L BUN 18 (9-20) mg/dL Creatinine 0.94 (0.66-1.25) mg/dL Estimated GFR 92.8 ML/MIN Glucose 198 H (74-106) mg/dL Calcium 9.3 (8.4-10.2) mg/dL Total Bilirubin 0.40 (0.2-1.3) mg/dL AST 35 (17-59) U/L ALT 49 (0-50) U/L Alkaline Phosphatase 130 H (38-126) U/L Troponin I 0.063 H* (0.000-0.033) ng/mL NT-Pro-B Natriuret Pep 291 (<300) pg/mL Serum Total Protein 8.0 (6.3-8.2) g/dL Albumin 4.5 (3.5-5.0) g/dL 08/27/24 Range/Units 22:39 WBC 9.5 H (4.23-9.07) x10^3/uL RBC 4.78 (4.63-6.08) x10^6/uL Hgb 13.8 (13.7-17.5) g/dL Hct 42.2 (40.1-51.0) % MCV 88.3 (79.0-92.2) fL MCH 28.9 (25.7-32.2) pg MCHC 32.7 (32.3-36.5) g/dL RDW 13.2 (11.6-14.4) % Plt Count 230 (163-337) x10^3/uL MPV 10.1 (9.4-12.4) fL Gran % 79.6 H (34.0-67.9) % Immature Gran % (Auto) 0.7 H (0.001-0.429) % Nucleat RBC Rel Count 0.0 (0.00-0.2) % Eos # (Auto) 0.20 (0.04-0.54) x10^3/uL Immature Gran # (Auto) 0.07 H (0.001-0.031) x10^3u/L Absolute Lymphs (auto) 0.94 L (1.32-3.57) x10^3/uL Absolute Monos (auto) 0.68 (0.30-0.82) x10^3/uL Absolute Nucleated RBC 0.00 (0.00-0.012) x10^3u/L Lymphocytes % 9.9 L (21.8-53.1) % Monocytes % 7.2 (5.3-12.2) % Eosinophils % 2.1 (0.8-7.0) % Basophils % 0.5 (0.2-1.2) % Absolute Granulocytes 7.56 H (1.78-5.38) x10^3/uL Basophils # 0.05 (0.01-0.08) x10^3/uL PT (9.4-12.5) SECONDS INR (0.8-3.0) D-Dimer (0.0-0.50) mg/L Sodium (135-145) mmol/L Potassium (3.5-5.1) mmol/L Chloride (98-107) mmol/L Carbon Dioxide (22-30) mmol/L Anion Gap (5-15) MEQ/L BUN (9-20) mg/dL Creatinine (0.66-1.25) mg/dL Estimated GFR ML/MIN Glucose (74-106) mg/dL Calcium (8.4-10.2) mg/dL Total Bilirubin (0.2-1.3) mg/dL AST (17-59) U/L ALT (0-50) U/L Alkaline Phosphatase (38-126) U/L Troponin I (0.000-0.033) ng/mL NT-Pro-B Natriuret Pep (<300) pg/mL Serum Total Protein (6.3-8.2) g/dL Albumin (3.5-5.0) g/dL - Progress Progress: improved, re-examined Air Movement: good Progress Note: 08/27/24 22:12 My medical decision making of the assignment of moderate complexity to this patient's medical issue today is based on review of the patient's past medical history, review of the patient's medication list, reviewed patient drug allergy list, history present illness and physical findings on examination. The workup in this patient includes placement of an intravenous line, providing the patient with 81 mg baby aspirin x 4, CBC, CMP, magnesium level, PT/INR, troponin level 08/27/24 23:39 Differential diagnosis includes but is not limited to muscle skeletal pain, myocardial infarction, pneumonia, pulmonary embolus, electrolyte abnormalities, arrhythmias. I calculate this patient's heart score as 3. 08/28/24 00:14 I interpreted the patient's laboratory data results. The patient has an elevated troponin level of 0.063. He has a non-STEMI. I interpreted the patient's preliminary chest x-ray report. There is cardiomegaly present but no acute cardiopulmonary processes. We contacted [facility] in [facility] and the transfer/call center auto accepted this patient on behalf of of Dr. Debra Case, the emergency room physician. Patient will be transferred to the emergency department. Blood Culture(s) Obtained: No Antibiotics given: No Counseled pt/family regarding: lab results, diagnosis, rad results Medical Desision Making - Independent Historian Additional History obtained from: Spouse - Diagnostic Testing Diagnostic test were ordered, analyzed, and reviewed by me: Yes Radiological Interpretation: Interpreted by me - Risk of complications The pt has a high risk of morbidity or mortality based on: Decision regarding hospitilization or escalation of hosp level of care - Departure Departure Disposition: Transfer Clinical Impression: Non-STEMI (non-ST elevated myocardial infarction) Condition: Stable Critical Care Time: No Referrals: NURA DILLON MD [Primary Care Provider] - Follow up/PCP as directed
[2024-08-27] MEDS ORDERED: BABY ASPIRIN 81 MG CHEW ONE (22:55)
[2024-08-27] MEDS: BABY ASPIRIN 81 MG CHEW PO ONE (22:56)
[2024-08-27 22:59] LABS: Absolute Neutrophil Ct (ANC) 7.56 x10^3/uL (1.78-5.38); BASOPHIL % 0.5 % (0.2-1.2); Basophil (Absolute #) 0.05 x10^3/uL (0.01-0.08); Eosinophil % 2.1 % (0.8-7.0); Hematocrit 42.2 % (40.1-51.0); Hemoglobin 13.8 g/dL (13.7-17.5); IMMATURE GRAN # 0.07 x10^3u/L (0.001-0.031); IMMATURE GRAN % 0.7 % (0.001-0.429); Lymphocyte (Absolute #) 0.94 x10^3/uL (1.32-3.57); Lymphocytes % 9.9 % (21.8-53.1); Mean Cell Volume 88.3 fL (79.0-92.2); Mean Corpuscular Hemoglobin 28.9 pg (25.7-32.2); Mean Corpuscular Hgb Concent. 32.7 g/dL (32.3-36.5); Mean Platelet Volume 10.1 fL (9.4-12.4); Monocyte (Absolute #) 0.68 x10^3/uL (0.30-0.82); Monocytes % 7.2 % (5.3-12.2); Neutrophil % 79.6 % (34.0-67.9); Platelet Count 230 x10^3/uL (163-337); Red Blood Count 4.78 x10^6/uL (4.63-6.08); Red Cell Distribution Width 13.2 % (11.6-14.4); White Blood Count 9.5 x10^3/uL (4.23-9.07)
[2024-08-27 23:13] LABS: D-DIMER QUANTITATIVE 0.46 mg/L (0.0-0.50); INR 0.9 (0.8-3.0); PROTIME 9.9 SECONDS (9.4-12.5)
[2024-08-27 23:21] LABS: ALBUMIN 4.5 g/dL (3.5-5.0); ANION GAP 15.5 MEQ/L (5-15); BILIRUBIN,TOTAL 0.4 mg/dL (0.2-1.3); Calcium 9.3 mg/dL (8.4-10.2); Creatinine 1 0.94 mg/dL (0.66-1.25); EST GLOMERULAR FILTRATION RATE 92.8 ML/MIN; Potassium 3.6 mmol/L (3.5-5.1)
[2024-08-28 01:07] VITALS: BP 132/74; PULSE 89; RESP 15; O2SAT 94
--- NOTE | 2024-08-28 07:55 | XRAY ---
Indication: Cough. Short of breath. Comparison: June 25, 2020 Portable apical lordotic chest remains inflated and clear. Heart borderline prominent. Bony thorax intact. No new/acute findings.
== END 2024-08-28 01:11 | disposition short-term general hospital (02) ==
LOC: ED 21:56
DX: I21.4 Non-ST elevation (NSTEMI) myocardial infarction (principal); R07.9 Chest pain, unspecified; R05.3 Chronic cough; I10 Essential (primary) hypertension; E78.5 Hyperlipidemia, unspecified; Z79.899 Other long term (current) drug therapy
CPT/HCPCS: 36000; 36415; 71045; 80053; 83880; 84484; 85025; 85379; 85610; 93005; 93041; 94760; 99285; A9270-GY

== ENCOUNTER 2025-08-23 15:57 | Day surgery (SDC) | payer BC ==
[2025-08-23] MEDS ORDERED: Lactated Ringers 1,000 ML IV ONE (18:25)
== END 2025-08-23 19:00 ==
LOC: SDC-PAIN 15:57
PROVIDERS: ATTEND Psychiatry & Neurology Pain Medicine
DX: Z53.8 Procedure and treatment not carried out for other reasons (principal); E11.9 Type 2 diabetes mellitus without complications

== ENCOUNTER 2025-09-07 06:42 | Day surgery (SDC) | payer BC ==
[2025-09-07] MEDS ORDERED: LIDOCAINE HCL 1% 50 MG/5 ML VL IJ ONE (06:43)
[2025-09-07] MEDS ORDERED: Sodium Chloride 0.9(Preservative Free) 10 ML IJ ONE (06:43)
[2025-09-07] MEDS ORDERED: Lactated Ringers 1,000 ML IV ONE (09:53)
--- NOTE | 2025-09-07 10:14 | XRAY ---
Indication: Cervical LUDIVINA. Intraoperative fluoroscopy provided for 28 seconds. 3 digital spot image submitted for interpretation demonstrates posterior needle tip projecting posterior to cervicothoracic junction. Small amount of contrast injected for needle tip placement. Correlate with intraoperative findings/report.
--- NOTE | 2025-09-07 10:26 | XRAY ---
28 seconds of fluoroscopy was used in surgery for a cervical LUDIVINA.
== END 2025-09-07 08:35 | disposition home or self-care (01) ==
LOC: SDC-PAIN 06:42
PROVIDERS: ATTEND Psychiatry & Neurology Pain Medicine
DX: M54.12 Radiculopathy, cervical region (principal); E11.9 Type 2 diabetes mellitus without complications